=== PATIENT | male | born 1970 | race American Indian/Alaskan Native ===

== ENCOUNTER 2017-06-25 18:14 | Inpatient (IN) | payer SELFPAY ==
[2017-06-25 19:09] LABS: Basophils % (Auto) 2.9 % (0.0-1.8); Eosinophils % (Auto) 1.2 % (0.0-4.3); Hematocrit 49.4 % (35.5-45.6); Hemoglobin 15.9 gm/dl (11.8-15.2); Mean Corpuscular HGB Conc 32 % (32-34); Mean Corpuscular Hemoglobin 26 pg (28-32); Mean Corpuscular Volume 81 fl (84-94); Platelet Count 226 K/mm3 (140-440); Red Blood Count 6.11 M/mm3 (3.65-5.03); Red Cell Distribution Width 16.7 % (13.2-15.2); White Blood Count 7.3 K/mm3 (4.5-11.0)
[2017-06-25 19:20] LABS: Anion Gap 18 mmol/L; BUN/Creatinine Ratio 11.81; Blood Urea Nitrogen 13 mg/dL (9-20); Calcium 9.8 mg/dL (8.4-10.2); Carbon Dioxide 26 mmol/L (22-30); Chloride 99.5 mmol/L (98-107); Glucose 81 mg/dL (75-100); Potassium 5.1 mmol/L (3.6-5.0); Sodium 138 mmol/L (137-145)
--- NOTE | 2017-06-26 06:44 | Emergency Department Report ---
ED Chest Pain HPI - General Chief Complaint: Chest Pain Stated Complaint: CHEST PAIN LEFT SIDE Time Seen by Provider: 06/26/17 06:38 Source: patient Mode of arrival: Ambulatory Limitations: No Limitations - History of Present Illness Initial Comments: Patient complains of midsternal chest pain which is nonpleuritic and nonradiating intermittently since . It was not precipitated by a food bolus. However, the patient states he feels like something is stuck in his midsternal area. He has no difficulty in swallowing or odynophagia. Does not suffer from any chronic GI type symptoms. He states that his chest pain has not been associated with sweating coughing dizziness or nausea or vomiting. It is not exertional. He has never been to a physician for evaluation of chest pain. He does have risk factors for coronary artery disease. He states that he thinks his grandmother had congestive heart failure but is not referring coronary artery disease and a first-degree relative. MD Complaint: chest pain -: days(s) Onset: during rest Pain Location: substernal Pain Radiation: none Severity: moderate Severity scale (0 -10): 7 Quality: other ("like something stuck") Consistency: intermittent, now resolved Improves With: nothing Worsens With: nothing re: denies: nausea, vomting, diaphoresis, dyspnea, sense of impending doom Other Symptoms: denies: cough, fever, syncope Treatments Prior to Arrival: none Aspirin use within the Past 7 Days: (0) No - Related Data Home Medications Medication Instructions Recorded Confirmed Last Taken Atenolol [Tenormin] 50 mg PO DAILY 06/26/17 06/26/17 Unknown Lisinopril [Zestril TAB] 10 mg PO QDAY 06/26/17 06/26/17 Unknown amLODIPine [Norvasc] 10 mg PO DAILY 06/26/17 06/26/17 Unknown Allergies Allergy/AdvReac Type Severity Reaction Status Date / Time No Known Allergies Allergy Unverified 06/25/17 18:31 Heart Score - HEART Score History: Slightly suspicious EKG: Non-specific Age: 45-65 Risk factors: > 3 risk factors or hx of atherosclerotic disease Troponin: < normal limit HEART Score: 4 - Critical Actions Critical Actions: 0-3 pts:0.9-1.7%risk of adverse cardiac event.Candidate for discharge ED Review of Systems ROS: Stated complaint: CHEST PAIN LEFT SIDE Other details as noted in HPI Constitutional: denies: chills, fever Eyes: denies: eye pain, eye discharge, vision change ENT: denies: ear pain, throat pain Respiratory: denies: cough, shortness of breath, wheezing Cardiovascular: chest pain. denies: palpitations Endocrine: no symptoms reported Gastrointestinal: denies: abdominal pain, nausea, diarrhea Genitourinary: denies: urgency, dysuria Musculoskeletal: denies: back pain, joint swelling, arthralgia Skin: denies: rash, lesions Neurological: denies: headache, weakness, paresthesias Psychiatric: denies: anxiety, depression Hematological/Lymphatic: denies: easy bleeding, easy bruising ED Past Medical Hx - Past Medical History Hx Hypertension: Yes - Surgical History Past Surgical History?: Yes Additional Surgical History: Right arm - Social History Smoking Status: Current Every Day Smoker Substance Use Type: Alcohol - Medications Home Medications: Home Medications Medication Instructions Recorded Confirmed Last Taken Type Atenolol [Tenormin] 50 mg PO DAILY 06/26/17 06/26/17 Unknown History Lisinopril [Zestril TAB] 10 mg PO QDAY 06/26/17 06/26/17 Unknown History amLODIPine [Norvasc] 10 mg PO DAILY 06/26/17 06/26/17 Unknown History ED Physical Exam - General Limitations: No Limitations General appearance: alert, in no apparent distress, obese - Head Head exam: Present: atraumatic, normocephalic - Eye Eye exam: Present: normal appearance, PERRL, EOMI. Absent: scleral icterus - ENT ENT exam: Present: mucous membranes moist - Neck Neck exam: Present: normal inspection - Respiratory Respiratory exam: Present: normal lung sounds bilaterally. Absent: respiratory distress - Cardiovascular Cardiovascular Exam: Present: regular rate, normal rhythm. Absent: systolic murmur, diastolic murmur, rubs, gallop - GI/Abdominal GI/Abdominal exam: Present: soft, normal bowel sounds. Absent: distended, tenderness, guarding, rebound, rigid - Rectal Rectal exam: Present: deferred - Extremities Exam Extremities exam: Present: normal inspection - Back Exam Back exam: Present: normal inspection - Neurological Exam Neurological exam: Present: alert, oriented X3, CN II-XII intact. Absent: motor sensory deficit - Psychiatric Psychiatric exam: Present: normal affect, normal mood - Skin Skin exam: Present: warm, dry, intact, normal color. Absent: rash ED Course Vital Signs 06/25/17 06/26/17 06/26/17 18:27 02:30 03:45 Temperature 98.2 F Pulse Rate 90 75 70 Respiratory 20 16 14 Rate Blood Pressure 148/105 Blood Pressure 134/92 129/88 [Left] O2 Sat by Pulse 99 97 96 Oximetry 06/26/17 06/26/17 06/26/17 04:00 04:11 04:21 Temperature Pulse Rate 76 78 Respiratory 25 H 19 12 Rate Blood Pressure 125/94 125/94 119/88 Blood Pressure [Left] O2 Sat by Pulse 96 95 94 Oximetry 06/26/17 06/26/17 06/26/17 04:30 04:41 04:51 Temperature Pulse Rate 78 80 78 Respiratory 15 12 12 Rate Blood Pressure 128/86 128/86 124/85 Blood Pressure [Left] O2 Sat by Pulse 93 94 94 Oximetry 06/26/17 06/26/17 07:22 08:54 Temperature 98.2 F 98.2 F Pulse Rate 78 78 Respiratory 18 18 Rate Blood Pressure Blood Pressure 131/91 130/90 [Left] O2 Sat by Pulse 96 98 Oximetry - Reevaluation(s) Reevaluation #1: Patient is admitted by Dr. Deshpande to the hospital service for further care and evaluation. 06/26/17 13:59 PARTH score - Parth Score Age > 65: (0) No Aspirin use within the Past 7 Days: (0) No 3 or more CAD Risk Factors: (1) Yes 2 or more Angina events in past 24 hrs: (0) No Known CAD with more than 50% Stenosis: (0) No Elevated Cardiac Markers: (0) No ST Deviation Greater than 0.5mm: (0) No PARTH Score: 1 ED Medical Decision Making - Lab Data Result diagrams: 06/26/17 09:36 06/26/17 09:36 Laboratory Results - last 24 hr 06/25/17 06/25/17 06/25/17 18:49 18:49 21:15 WBC 7.3 RBC 6.11 H Hgb 15.9 H Hct 49.4 H MCV 81 L MCH 26 L MCHC 32 RDW 16.7 H Plt Count 226 Lymph % (Auto) 42.2 H [place] % (Auto) 8.4 H Eos % (Auto) 1.2 Baso % (Auto) 2.9 H Lymph # 3.1 [place] # 0.6 Eos # 0.1 Baso # 0.2 H Seg Neutrophils % 45.3 Seg Neutrophils # 3.3 Sodium 138 Potassium 5.1 H Chloride 99.5 Carbon Dioxide 26 Anion Gap 18 BUN 13 Creatinine 1.1 Estimated GFR > 60 BUN/Creatinine Ratio 11.81 Glucose 81 Calcium 9.8 Troponin T < 0.010 < 0.010 06/26/17 00:40 WBC RBC Hgb Hct MCV MCH MCHC RDW Plt Count Lymph % (Auto) [place] % (Auto) Eos % (Auto) Baso % (Auto) Lymph # [place] # Eos # Baso # Seg Neutrophils % Seg Neutrophils # Sodium Potassium Chloride Carbon Dioxide Anion Gap BUN Creatinine Estimated GFR BUN/Creatinine Ratio Glucose Calcium Troponin T < 0.010 - EKG Data -: EKG Interpreted by Me Rate: normal - EKG Data Interpretation: no acute changes, other (EKG shows first-degree A-V block with a very significant SD interval of 352 on repeat EKG, prior EKG had a SD interval of 216 possibly with occasional periods of Wenkebach) - Radiology Data Radiology results: report reviewed interpreted by me: Chest x-ray no acute process Critical care attestation.: If time is entered above; I have spent that time in minutes in the direct care of this critically ill patient, excluding procedure time. ED Disposition Clinical Impression: First degree AV block Chest pain Qualifiers: Chest pain type: unspecified Qualified Code(s): R07.9 - Chest pain, unspecified Disposition: OP ADMIT IP TO THIS HOSP Is pt being admited?: Yes Does the pt Need Aspirin: Yes Condition: Stable Time of Disposition: 14:03
[2017-06-26 08:09] LABS: INR 1.02 (0.87-1.13)
[2017-06-26 08:10] LABS: Partial Thromboplastin Time 31.5 Sec. (24.2-36.6)
[2017-06-26 08:12] LABS: Alanine Aminotransferase 19 units/L (7-56); Albumin 4.2 g/dL (3.9-5); Albumin/Globulin Ratio 1.3 %; Alkaline Phosphatase 59 units/L (35-129); Total Protein 7.5 g/dL (6.3-8.2)
[2017-06-26 08:16] LABS: Bilirubin,Direct < 0.2 mg/dL (0-0.2)
--- NOTE | 2017-06-26 09:18 | History and Physical Report ---
History of Present Illness Date of examination: 06/26/17 Date of admission: 06/26/17 07:57 Chief complaint: cp History of present illness: This is a 46-year-old male presents to the emergency department with significant past medical history of hypertension complaining of midsternal nonradiating chest pain that began on . Patient reports that the pain has been constant since day and progressively worsened on Tuesday afternoon which prompted his visit to the emergency room. Denies any shortness of breath. No PND or orthopnea. No cough or cold-like symptoms. No fever chills. No diaphoresis. No nausea or vomiting. However, patient does report that the pain feels like gas that is trapped or indigestion. Patient denies any headache or visual disturbances. Past History Past Medical History: hypertension Past Surgical History: Other (right arm surgery) Social history: no significant social history, smoking, other (3 beers per day) Family history: no significant family history Medications and Allergies Allergies Allergy/AdvReac Type Severity Reaction Status Date / Time No Known Allergies Allergy Unverified 06/25/17 18:31 Review of Systems All systems: negative Exam - Constitutional Vitals: Temp Pulse Resp BP Pulse Ox 98.2 F 78 18 130/90 98 06/26/17 08:54 06/26/17 08:54 06/26/17 08:54 06/26/17 08:54 06/26/17 08:54 General appearance: Present: no acute distress, well-nourished - EENT Eyes: Present: PERRL ENT: hearing intact, clear oral mucosa - Neck Neck: Present: supple, normal ROM - Respiratory Respiratory effort: normal Respiratory: bilateral: CTA - Cardiovascular Heart Sounds: Present: S1 & S2. Absent: rub, click - Extremities Extremities: pulses symmetrical, No edema Peripheral Pulses: within normal limits - Abdominal General gastrointestinal: Present: soft, non-tender, non-distended, normal bowel sounds Male genitourinary: Present: normal - Integumentary Integumentary: Present: clear, warm, dry - Musculoskeletal Musculoskeletal: gait normal, strength equal bilaterally - Psychiatric Psychiatric: appropriate mood/affect, intact judgment & insight - Neurologic Neurologic: CNII-XII intact, moves all extremities Results - Labs CBC & Chem 7: 06/25/17 18:49 06/25/17 18:49 Labs: Laboratory Last Values WBC 7.3 K/mm3 (4.5-11.0) 06/25/17 18:49 RBC 6.11 M/mm3 (3.65-5.03) H 06/25/17 18:49 Hgb 15.9 gm/dl (11.8-15.2) H 06/25/17 18:49 Hct 49.4 % (35.5-45.6) H 06/25/17 18:49 MCV 81 fl (84-94) L 06/25/17 18:49 MCH 26 pg (28-32) L 06/25/17 18:49 MCHC 32 % (32-34) 06/25/17 18:49 RDW 16.7 % (13.2-15.2) H 06/25/17 18:49 Plt Count 226 K/mm3 (140-440) 06/25/17 18:49 Lymph % (Auto) 42.2 % (13.4-35.0) H 06/25/17 18:49 [place] % (Auto) 8.4 % (0.0-7.3) H 06/25/17 18:49 Eos % (Auto) 1.2 % (0.0-4.3) 06/25/17 18:49 Baso % (Auto) 2.9 % (0.0-1.8) H 06/25/17 18:49 Lymph # 3.1 K/mm3 (1.2-5.4) 06/25/17 18:49 [place] # 0.6 K/mm3 (0.0-0.8) 06/25/17 18:49 Eos # 0.1 K/mm3 (0.0-0.4) 06/25/17 18:49 Baso # 0.2 K/mm3 (0.0-0.1) H 06/25/17 18:49 Seg Neutrophils % 45.3 % (40.0-70.0) 06/25/17 18:49 Seg Neutrophils # 3.3 K/mm3 (1.8-7.7) 06/25/17 18:49 PT 13.3 Sec. (12.2-14.9) 06/26/17 07:38 INR 1.02 (0.87-1.13) 06/26/17 07:38 APTT 31.5 Sec. (24.2-36.6) 06/26/17 07:38 D-Dimer 1060.22 ng/mlDDU (0-234) H 06/26/17 07:38 Sodium 138 mmol/L (137-145) 06/25/17 18:49 Potassium 5.1 mmol/L (3.6-5.0) H 06/25/17 18:49 Chloride 99.5 mmol/L (98-107) 06/25/17 18:49 Carbon Dioxide 26 mmol/L (22-30) 06/25/17 18:49 Anion Gap 18 mmol/L 06/25/17 18:49 BUN 13 mg/dL (9-20) 06/25/17 18:49 Creatinine 1.1 mg/dL (0.8-1.5) 06/25/17 18:49 Estimated GFR > 60 ml/min 06/25/17 18:49 BUN/Creatinine Ratio 11.81 % 06/25/17 18:49 Glucose 81 mg/dL (75-100) 06/25/17 18:49 Calcium 9.8 mg/dL (8.4-10.2) 06/25/17 18:49 Total Bilirubin 0.30 mg/dL (0.1-1.2) 06/26/17 07:38 Direct Bilirubin < 0.2 mg/dL (0-0.2) 06/26/17 07:38 AST 21 units/L (5-40) 06/26/17 07:38 ALT 19 units/L (7-56) 06/26/17 07:38 Alkaline Phosphatase 59 units/L (35-129) 06/26/17 07:38 Troponin T < 0.010 ng/mL (0.00-0.029) 06/26/17 00:40 NT-Pro-B Natriuret Pep 8.41 pg/mL (0-450) 06/26/17 07:38 Total Protein 7.5 g/dL (6.3-8.2) 06/26/17 07:38 Albumin 4.2 g/dL (3.9-5) 06/26/17 07:38 Albumin/Globulin Ratio 1.3 % 06/26/17 07:38 Assessment and Plan Assessment and plan: Chest pain. Patient will be placed on a chest pain protocol. Follow-up EKG and cardiac isoenzymes. Patient will be scheduled for Lexiscan in the morning. Hypertension. Resume antihypertensive medications of lisinopril, Norvasc and atenolol.
[2017-06-26] MEDS ORDERED: MILK OF MAGNESIA PO PRN (09:21)
[2017-06-26] MEDS ORDERED: TYLENOL PO PRN (09:21)
[2017-06-26] MEDS ORDERED: DULCOLAX PR PRN (09:21)
[2017-06-26 09:46] LABS: Basophils % (Auto) 0.7 % (0.0-1.8); Hematocrit 47.8 % (35.5-45.6); Hemoglobin 15.5 gm/dl (11.8-15.2); Mean Corpuscular HGB Conc 32 % (32-34); Mean Corpuscular Hemoglobin 26 pg (28-32); Mean Corpuscular Volume 82 fl (84-94); Platelet Count 219 K/mm3 (140-440); Red Blood Count 5.86 M/mm3 (3.65-5.03); Red Cell Distribution Width 16.5 % (13.2-15.2); White Blood Count 5.9 K/mm3 (4.5-11.0)
--- NOTE | 2017-06-26 09:54 | XRay Report ---
AP CHEST: HISTORY: chest pain AP view of the chest demonstrates a normal mediastinal and cardiac contour with clear lungs and normal bony and soft tissue structures. IMPRESSION: Unremarkable AP chest.
[2017-06-26] MEDS ORDERED: NACL 0.9% 1000 ML 1,000 ML IV SCH (10:00)
[2017-06-26] MEDS ORDERED: SODIUM CHLORIDE FLUSH SYRINGE 10 ML IV PRN (10:00)
[2017-06-26] MEDS ORDERED: ZOFRAN IV PRN (10:00)
[2017-06-26 10:02] LABS: Anion Gap 19 mmol/L; BUN/Creatinine Ratio 11.66; Blood Urea Nitrogen 14 mg/dL (9-20); Calcium 9.2 mg/dL (8.4-10.2); Carbon Dioxide 23 mmol/L (22-30); Chloride 98.3 mmol/L (98-107); Glucose 152 mg/dL (75-100); Sodium 136 mmol/L (137-145)
[2017-06-26] MEDS: MORPHINE IV PRN (13:52)
[2017-06-26] MEDS: LOVENOX SUB-Q SCH (13:52)
[2017-06-26] MEDS: PROTONIX PO SCH (13:52)
[2017-06-27 05:52] LABS: Basophils % (Auto) 0.8 % (0.0-1.8); Eosinophils % (Auto) 2.3 % (0.0-4.3); Hematocrit 45.6 % (35.5-45.6); Hemoglobin 14.7 gm/dl (11.8-15.2); Mean Corpuscular HGB Conc 32 % (32-34); Mean Corpuscular Hemoglobin 26 pg (28-32); Mean Corpuscular Volume 81 fl (84-94); Platelet Count 172 K/mm3 (140-440); Red Cell Distribution Width 16.6 % (13.2-15.2); White Blood Count 5.1 K/mm3 (4.5-11.0)
[2017-06-27 06:12] LABS: Anion Gap 18 mmol/L; Blood Urea Nitrogen 18 mg/dL (9-20); Calcium 8.9 mg/dL (8.4-10.2); Carbon Dioxide 24 mmol/L (22-30); Glucose 116 mg/dL (75-100); Potassium 4.6 mmol/L (3.6-5.0); Sodium 141 mmol/L (137-145)
--- NOTE | 2017-06-27 08:27 | Progress Note ---
Addendum entered and electronically signed by NAHOMY BUENROSTRO MD 06/27/17 14:25: I saw and evaluated the patient. I agree with the findings and the plan of care as documented in the Nurse Practitioner's~note, with the following corrections and additions. Original Note: <OMAR GOSS - Last Filed: 06/27/17 10:18> Assessment and Plan Assessment and plan: Chest pain No multiple to lead EKG, we will also get an EKG for any changes that have taken since the first obtained. Started on aspirin Cardiac enzymes troponin negative 3 Stress test Pending Elevate D-dimer We will get CTA to rule out pulmonary embolism we will get Bilateral VL venous doppler to rule out DVT of the lower extremity. Hypertension We will resume home antihypertensive medicine IV hydralazine for SBP >160 DVT prophylaxis Lovenox History Interval history: Patient complaining midsternal chest pain, but he denies associated symptoms nausea, vomiting or sweating. Hospitalist Physical - Constitutional Vitals: Temp Pulse Resp BP Pulse Ox 97.7 F 96 H 20 139/82 98 06/27/17 06:29 06/27/17 06:29 06/27/17 06:29 06/27/17 06:29 06/27/17 06:29 General appearance: Present: no acute distress, well-nourished - EENT Eyes: Present: PERRL ENT: hearing intact - Neck Neck: Present: supple - Respiratory Respiratory effort: normal Respiratory: bilateral: CTA - Cardiovascular Rhythm: regular Heart Sounds: Present: S1 & S2 - Extremities Extremities: no ischemia Peripheral Pulses: within normal limits - Abdominal General gastrointestinal: soft, non-tender - Integumentary Integumentary: Present: clear, warm, dry - Psychiatric Psychiatric: appropriate mood/affect - Neurologic Neurologic: CNII-XII intact - Allied Health Allied health notes reviewed: nursing Results - Labs CBC & Chem 7: 06/27/17 05:29 06/27/17 05:29 Labs: Laboratory Last Values WBC 5.1 K/mm3 (4.5-11.0) 06/27/17 05:29 RBC 5.60 M/mm3 (3.65-5.03) H 06/27/17 05:29 Hgb 14.7 gm/dl (11.8-15.2) 06/27/17 05:29 Hct 45.6 % (35.5-45.6) 06/27/17 05:29 MCV 81 fl (84-94) L 06/27/17 05:29 MCH 26 pg (28-32) L 06/27/17 05:29 MCHC 32 % (32-34) 06/27/17 05:29 RDW 16.6 % (13.2-15.2) H 06/27/17 05:29 Plt Count 172 K/mm3 (140-440) 06/27/17 05:29 Lymph % (Auto) 51.3 % (13.4-35.0) H 06/27/17 05:29 [place] % (Auto) 9.7 % (0.0-7.3) H 06/27/17 05:29 Eos % (Auto) 2.3 % (0.0-4.3) 06/27/17 05:29 Baso % (Auto) 0.8 % (0.0-1.8) 06/27/17 05:29 Lymph # 2.6 K/mm3 (1.2-5.4) 06/27/17 05:29 [place] # 0.5 K/mm3 (0.0-0.8) 06/27/17 05:29 Eos # 0.1 K/mm3 (0.0-0.4) 06/27/17 05:29 Baso # 0.0 K/mm3 (0.0-0.1) 06/27/17 05:29 Seg Neutrophils % 35.9 % (40.0-70.0) L 06/27/17 05:29 Seg Neutrophils # 1.8 K/mm3 (1.8-7.7) 06/27/17 05:29 PT 13.3 Sec. (12.2-14.9) 06/26/17 07:38 INR 1.02 (0.87-1.13) 06/26/17 07:38 APTT 31.5 Sec. (24.2-36.6) 06/26/17 07:38 D-Dimer 1060.22 ng/mlDDU (0-234) H 06/26/17 07:38 Sodium 136 mmol/L (137-145) L 06/26/17 09:36 Potassium 4.6 mmol/L (3.6-5.0) 06/27/17 05:29 Chloride 104.0 mmol/L (98-107) 06/27/17 05:29 Carbon Dioxide 24 mmol/L (22-30) 06/27/17 05:29 Anion Gap 18 mmol/L 06/27/17 05:29 BUN 18 mg/dL (9-20) 06/27/17 05:29 Creatinine 1.0 mg/dL (0.8-1.5) 06/27/17 05:29 Estimated GFR > 60 ml/min 06/27/17 05:29 BUN/Creatinine Ratio 18.00 % 06/27/17 05:29 Glucose 116 mg/dL (75-100) H 06/27/17 05:29 Calcium 8.9 mg/dL (8.4-10.2) 06/27/17 05:29 Total Bilirubin 0.30 mg/dL (0.1-1.2) 06/26/17 07:38 Direct Bilirubin < 0.2 mg/dL (0-0.2) 06/26/17 07:38 AST 21 units/L (5-40) 06/26/17 07:38 ALT 19 units/L (7-56) 06/26/17 07:38 Alkaline Phosphatase 59 units/L (35-129) 06/26/17 07:38 Troponin T < 0.010 ng/mL (0.00-0.029) 06/26/17 15:50 NT-Pro-B Natriuret Pep 8.41 pg/mL (0-450) 06/26/17 07:38 Total Protein 7.5 g/dL (6.3-8.2) 06/26/17 07:38 Albumin 4.2 g/dL (3.9-5) 06/26/17 07:38 Albumin/Globulin Ratio 1.3 % 06/26/17 07:38 - Imaging and Cardiology Chest x-ray: image reviewed <NAHOMY BUENROSTRO R - Last Filed: 06/27/17 14:24> Assessment and Plan Assessment and plan: I saw and evaluated the patient. I agree with the findings and the plan of care as documented in the Nurse Practitioner's~note, with the following corrections and additions. Hospitalist Physical - Constitutional Vitals: Temp Pulse Resp BP Pulse Ox 97.5 F L 71 18 149/96 98 06/27/17 08:00 06/27/17 08:00 06/27/17 08:00 06/27/17 08:00 06/27/17 08:00 Results - Labs CBC & Chem 7: 06/27/17 05:29 06/27/17 05:29 Labs: Laboratory Last Values WBC 5.1 K/mm3 (4.5-11.0) 06/27/17 05:29 RBC 5.60 M/mm3 (3.65-5.03) H 06/27/17 05:29 Hgb 14.7 gm/dl (11.8-15.2) 06/27/17 05:29 Hct 45.6 % (35.5-45.6) 06/27/17 05:29 MCV 81 fl (84-94) L 06/27/17 05:29 MCH 26 pg (28-32) L 06/27/17 05:29 MCHC 32 % (32-34) 06/27/17 05:29 RDW 16.6 % (13.2-15.2) H 06/27/17 05:29 Plt Count 172 K/mm3 (140-440) 06/27/17 05:29 Lymph % (Auto) 51.3 % (13.4-35.0) H 06/27/17 05:29 [place] % (Auto) 9.7 % (0.0-7.3) H 06/27/17 05:29 Eos % (Auto) 2.3 % (0.0-4.3) 06/27/17 05:29 Baso % (Auto) 0.8 % (0.0-1.8) 06/27/17 05:29 Lymph # 2.6 K/mm3 (1.2-5.4) 06/27/17 05:29 [place] # 0.5 K/mm3 (0.0-0.8) 06/27/17 05:29 Eos # 0.1 K/mm3 (0.0-0.4) 06/27/17 05:29 Baso # 0.0 K/mm3 (0.0-0.1) 06/27/17 05:29 Seg Neutrophils % 35.9 % (40.0-70.0) L 06/27/17 05:29 Seg Neutrophils # 1.8 K/mm3 (1.8-7.7) 06/27/17 05:29 PT 13.3 Sec. (12.2-14.9) 06/26/17 07:38 INR 1.02 (0.87-1.13) 06/26/17 07:38 APTT 31.5 Sec. (24.2-36.6) 06/26/17 07:38 D-Dimer 1060.22 ng/mlDDU (0-234) H 06/26/17 07:38 Sodium 136 mmol/L (137-145) L 06/26/17 09:36 Potassium 4.6 mmol/L (3.6-5.0) 06/27/17 05:29 Chloride 104.0 mmol/L (98-107) 06/27/17 05:29 Carbon Dioxide 24 mmol/L (22-30) 06/27/17 05:29 Anion Gap 18 mmol/L 06/27/17 05:29 BUN 18 mg/dL (9-20) 06/27/17 05:29 Creatinine 1.0 mg/dL (0.8-1.5) 06/27/17 05:29 Estimated GFR > 60 ml/min 06/27/17 05:29 BUN/Creatinine Ratio 18.00 % 06/27/17 05:29 Glucose 116 mg/dL (75-100) H 06/27/17 05:29 Calcium 8.9 mg/dL (8.4-10.2) 06/27/17 05:29 Total Bilirubin 0.30 mg/dL (0.1-1.2) 06/26/17 07:38 Direct Bilirubin < 0.2 mg/dL (0-0.2) 06/26/17 07:38 AST 21 units/L (5-40) 06/26/17 07:38 ALT 19 units/L (7-56) 06/26/17 07:38 Alkaline Phosphatase 59 units/L (35-129) 06/26/17 07:38 Troponin T < 0.010 ng/mL (0.00-0.029) 06/26/17 15:50 NT-Pro-B Natriuret Pep 8.41 pg/mL (0-450) 06/26/17 07:38 Total Protein 7.5 g/dL (6.3-8.2) 06/26/17 07:38 Albumin 4.2 g/dL (3.9-5) 06/26/17 07:38 Albumin/Globulin Ratio 1.3 % 06/26/17 07:38
[2017-06-27] MEDS ORDERED: NACL ONE (09:55)
--- NOTE | 2017-06-27 10:43 | Cat Scan Report ---
CTA CHEST INDICATION: Elevated d-dimer. COMPARISON: None similar. FINDINGS: Chest CTA performed following intravenous administration of 100 cc of Omnipaque 350. Rotational MIP's also obtained. Normal heart size. No effusions. No aortic aneurysm, dissection or suspicious pulmonary arterial filling defects. A subcarinal lymph node approximately 2.6 x 1.5 cm, axial image 111, series 2. No other definite significant adenopathy. Normal airway. Unremarkable thyroid. Well-expanded lungs with 3 small nonspecific peripheral right upper lobe opacities anteriorly, axial images 59-79, series 2 measuring up to approximately 1.2 cm, presumed atelectatic. At least one similar appearance in the left upper lobe anteriorly also seen, axial image 66. Images through included upper abdomen reveal no significant abnormality. Mild spinal degenerative spurring. CONCLUSION: No CT evidence of pulmonary embolism with few other incidental findings, as above. Thank you for the opportunity to participate in this patient's care.
--- NOTE | 2017-06-27 10:54 | Admit Criteria Form ---
Admission Criteria Documentation: CARDIOLOGY GRG Clinical Indications for Admission to Inpatient Care ( Place 'X' for any and all applicable criteria): Hospital admission is needed for appropriate care of the patient because of ANY ONE of the following (1): [ ] I. Hemodynamic instability as indicated by ALL of the following (1)(2)(3) (4)(5) [ ]a) Vital signs or other findings not as expected for chronic patient condition or baseline [ ]b) Instability indicated by ANY ONE of the following: [ ]i) Hypotension [ ]ii) Symptomatic Tachycardia unresponsive to treatment ( e.g., analgesia, fluids, sedation as indicated) [ ]iii) Inadequate perfusion indicated by ANY ONE of the following: [ ] 1) Lactic acidosis (> 2 mmol/L) [ ] 2) New abnormal capillary refill (> 3 seconds) [ ] 3) Reduced urine output [ ] 4) New altered mental status [ ]iv) Orthostatic vital sign changes unresponsive to treatment (e.g., fluids) [ ]v) IV inotropic or vasopressor medication required to maintain adequate blood pressure or perfusion [ ] II. Severe heart failure as indicated by ANY ONE of the following(17)(18) [ ]a) Respiratory distress [ ]b) Hypotension [ ]c) Anasarca (refractory to outpatient therapy) [ ]d) Cardiac arrhythmias of immediate concern [ ]e) Myocardial ischemia [ ] III. Cardiac arrhythmias or findings of immediate concern indicated by ANY ONE of the following (19)(20): [ ] a) Heart rhythms that are inherently dangerous or unstable indicated by ANY ONE of the following (21)(22)(23): [ ] i) Resuscitated ventricular fibrillation or cardiac arrest [ ] ii) Ventricular escape rhythm [ ] iii) Sustained ventricular tachycardia (30 seconds or more of ventricular rhythm at greater than 100 beats per minute) [ ] iv) Nonsustained ventricular tachycardia and ANY ONE of the following: [ ] 1) Suspected cardiac ischemia as cause or consequence of ventricular tachycardia [ ] 2) In setting of acute myocarditis [ ] b) Unstable cardiac conduction defects indicated by ANY ONE of the following(23)(24)(25) [ ] i) Type II second-degree atrioventricular block [ ]ii) Third-degree atrioventricular block [ ]iii) New-onset left bundle branch block with suspected myocardial ischemia [ ]c) Any heart rhythm and ANY ONE of the following (21)(22)(26)(27) (28) [ ] i) Continuous long-term ECG monitoring needed (e.g., initiation of drug requiring monitoring for more than 24 hours) [ ] ii) Patient has automatic implanted cardioverter defibrillator that is repeatedly firing, malfunctioning, or in need of immediate adjustment of settings beyond the scope of ambulatory or observation care [ ]d) Heart rhythms of concern due to ANY ONE of the following: [ ] i) Hypotension [ ] ii) Respiratory distress [ ] iii) Association with other significant symptoms (e.g., bradycardia with syncope or ongoing dizziness, supraventricular tachycardia with chest pain (14)(15)(17) [ ] IV. Monitoring for cardiac contusion beyond the scope of observation care needed [A](30)(31)(32) [ ] V. Surgical or device complication (e.g., valve replacement complication , pacemaker dysfunction) (35)(41)(44)(45)(46) [ ] . Inpatient palliative care needed. [B](49) Also use Inpatient Palliative Care Criteria [ ] VII. Nonbacterial thrombotic (marantic) endocarditis (36)(43)(47)(48) [X] VIII. Cardiology condition, symptom, or finding for which emergency and observation care has failed or are not considered appropriate. [ ] IX. Acute valvular disease requiring inpatient as indicated by ANY ONE of the following (41) [ ]a) Acute valvular regurgitation (42) [ ]b) Noninfectious valvulitis (43) [ ]c) Obstructive valve thrombosis [ ]d) Paravalvular leak [ ]e) Other significant valvular disorder remaining after emergency or observation level of care (as appropriate) [ ]X. Pericardial disease requiring inpatient treatment as indicated by ANY ONE of the following (33)(34)(35)(36)(37) [ ]a) Suspected tamponade (38)(39)(40) [ ]b) Hemopericardium [ ]c) Other significant pericardial disorder remaining after emergency or observation level of care (as appropriate) [ ] XI. Cardiac ischemia beyond scope of emergency and observation care. [ ] XII. Hypertension requiring inpatient treatment as indicated by ANY ONE of the following (6)(7)(8) [ ]a) SBP greater than 220 mm Hg or DBP greater than 120 mmHg despite treatment [ ]b) SBP greater than 140 mm Hg or DBP greater than 100 mm Hg with evidence of acute end organ damage as indicated by ANY ONE of the following [ ] i) Altered mental status [ ] ii) Acute renal failure as indicated by new onset of ANY ONE of the following (9)(10)(11)(12)(13) [ ]1) 3-fold rise in serum creatinine from baseline [ ]2) Serum creatinine greater than 4 mg/dL ( 354 micromoles/L) with acute rise greater than 0.5 mg/dL (44.2 micromoles/L) [ ]3) Reduction of more than 75% in estimated glomerular filtration rate from baseline [ ]4) Estimated glomerular filtration rate less than 35 mL/min/1.73m2 (0.59 mL/sec/1.73m2) in child up to 18 years of age [ ]5) Cessation of urine output indicated by ALL of the following [ ]A. Adequate volume status [ ]B. Inadequate urine output as indicated by ANY ONE of the following [ ]a. Urine output less than 0.3 mL/kg/hr for 24 hours [ ]b. Anuria (urine output less than 0.1 mL/kg/hr) for 12 hours [ ] iii) Aortic dissection [ ] iv) Myocardial Ischemia [ ] v) Left ventricular heart failure [ ]vi) Retinal Hemorrhage [ ]vii) Other significant finding [ ]c) Hypertension in child requiring inpatient treatment as indicated by ALL of the following(14)(15)(16) [ ] i) Outpatient treatment not effective, not available, or not appropriate [ ]ii) SBP or DBP greater than 95th percentile for age [ ]iii) Evidence of acute end organ damage as indicated by ANY ONE of the following [ ]1) Altered mental status [ ]2) Acute renal failure as indicated by new onset of ANY ONE of the following(9)(10)(11)(12)(13) [ ]A. 3-fold rise in serum creatinine from baseline [ ]B. Serum creatinine greater than 4 mg/dL (354 micromoles/L) with acute rise greater than 0.5 mg/dL (44.2 micromoles/L) [ ]C. Reduction of more than 75% in estimated glomerular filtration rate from baseline [ ]D. Estimated glomerular filtration rate less than 35 mL/min/1.73m2 (0.59 mL/sec/1.73m2) in child up to 18 years of age [ ]E. Cessation of urine output indicated by ALL of the following [ ]a. Adequate volume status [ ]b. Inadequate urine output as indicated by ANY ONE of the following [ ]i) Urine output less than 0.3 mL/kg/hr for 24 hours [ ]ii) Anuria ( urine output less than 0.1 mL/kg/hr) for 12 hours [ ]3) Severe headache [ ]4) Visual disturbance [ ]5) Retinal hemorrhage [ ]6) Other significant finding [ ]XIII. Complications of transplanted heart indicated by ANY ONE of the following(61): [ ]a) Acute graft rejection requiring inpatient management (eg, intravenous immunosuppression)(62)(63) [ ]b) Acute graft heart failure indicated by ANY ONE of the following(64): [ ]i) Hemodynamic instability [ ]ii) Cardiac arrhythmias of immediate concern [ ]iii) Pulmonary edema that is very severe (eg, mechanical ventilation needed, imminent or likely, need for 100% oxygen to keep oxygen saturation above 90%) [ ]iv) Pulmonary edema that is persistent as indicated by ALL of the following: [ ]1) New need for oxygen therapy to keep oxygen saturation above 90% (or increased FiO2 need from baseline) [ ]2) Has not improved sufficiently with emergency department or observation care IV diuretics or other heart failure treatments[E] [ ]v) Altered mental status that is severe or persistent [ ]vi) Increased creatinine (new on laboratory test) with reduction of more than 50% in estimated glomerular filtration rate from baseline [ ]vii) Progressively (ongoing) rising creatinine (known from past laboratory test) with reduction of more than 25% in estimated glomerular filtration rate from baseline [ ]viii) Acute renal failure [ ]ix) Acute peripheral ischemia (eg, examination shows pulseless, cool, mottled, or cyanotic extremity) [ ]x) Pulmonary artery catheter monitoring needed [ ]xi) Other sign or symptom of heart failure requiring inpatient treatment (ie, too severe or not responsive to outpatient and observation care treatment) [ ]c) Infection requiring inpatient management (eg, Hemodynamic instability, need for intravenous antimicrobial treatment)(66)(67)(68)(69)(70) [ ]d) Cardiac allograft vasculopathy requiring inpatient management ( eg evidence of cardiac ischemia)(71) [ ]e) Other complication of transplanted heart (eg, stroke, severe pulmonary hypertension, severe valvular dysfunction) requiring inpatient management(72) The original [facility] [employer] content created by [facility] has been revised. The portions of the content which have been revised are identified through the use of italic text or in bold, and [facility] has neither reviewed nor approved the modified material. All other unmodified content is copyright [facility] [employer]. Please see references footnoted in the original [facility] [employer] edition 2016 Admission Criteria Met: Yes
[2017-06-27] MEDS ORDERED: LEXISCAN IV ONE (11:23)
[2017-06-27] MEDS: LOVENOX SUB-Q SCH (13:57)
[2017-06-27] MEDS: NORVASC PO SCH (13:58)
[2017-06-27] MEDS: PROTONIX PO SCH (13:58)
[2017-06-27] MEDS: ZESTRIL PO SCH (13:58)
[2017-06-27] MEDS: TENORMIN PO SCH (13:58)
[2017-06-27] MEDS: BABY ASPIRIN PO SCH (13:59)
[2017-06-27] MEDS: MORPHINE IV PRN (16:06)
[2017-06-28] MEDS: MORPHINE IV PRN (03:51)
--- NOTE | 2017-06-28 07:23 | Treadmill Report ---
Nuclear study done on 06/27/2017 for chest pain READING PHYSICIAN: Dr. Gianni Simon The patient is seen in office. IMAGING PROTOCOL: The patient received 10 mCi of Technetium 99m Tetrofosmin for resting image and 28 mCi of Technetium 99m Tetrofosmin for stress imaging. The imaging for the whole procedure was completed 30-90 minutes following the initial injection of Technetium 99m tetrofosmin. The SPECT imaging in the 180 degree arc was performed in the right anterior oblique projection. Computerized reconstruction of the images was performed for analysis. IMAGING RESULTS: Normal cavity size from stress to rest. Normal distribution of radionuclide in the anterior, inferior, septal and apical regions. Gated SPECT, EF greater than 59% with motion abnormalities. The patient infused Lexiscan after some intermediate Wenckebach, but no EKG changes suggestive of ischemia. SUMMARY: 1. Negative Lexiscan EKG. 2. Normal rest and stress myocardial perfusion scan. No significant stress ischemia. No wall motion abnormality. Gated SPECT 59%. JOB# [id number] MARIA FERNANDA/CARIDAD
--- NOTE | 2017-06-28 08:16 | Progress Note ---
Hospitalist Physical - Constitutional Vitals: Temp Pulse Resp BP Pulse Ox 97.3 F L 62 20 114/71 94 06/28/17 05:43 06/28/17 05:43 06/28/17 05:43 06/28/17 05:43 06/28/17 05:43 General appearance: Present: no acute distress, well-nourished Results - Labs CBC & Chem 7: 06/27/17 05:29 06/27/17 05:29 Labs: Laboratory Last Values WBC 5.1 K/mm3 (4.5-11.0) 06/27/17 05:29 RBC 5.60 M/mm3 (3.65-5.03) H 06/27/17 05:29 Hgb 14.7 gm/dl (11.8-15.2) 06/27/17 05:29 Hct 45.6 % (35.5-45.6) 06/27/17 05:29 MCV 81 fl (84-94) L 06/27/17 05:29 MCH 26 pg (28-32) L 06/27/17 05:29 MCHC 32 % (32-34) 06/27/17 05:29 RDW 16.6 % (13.2-15.2) H 06/27/17 05:29 Plt Count 172 K/mm3 (140-440) 06/27/17 05:29 Lymph % (Auto) 51.3 % (13.4-35.0) H 06/27/17 05:29 Bosque % (Auto) 9.7 % (0.0-7.3) H 06/27/17 05:29 Eos % (Auto) 2.3 % (0.0-4.3) 06/27/17 05:29 Baso % (Auto) 0.8 % (0.0-1.8) 06/27/17 05:29 Lymph # 2.6 K/mm3 (1.2-5.4) 06/27/17 05:29 Bosque # 0.5 K/mm3 (0.0-0.8) 06/27/17 05:29 Eos # 0.1 K/mm3 (0.0-0.4) 06/27/17 05:29 Baso # 0.0 K/mm3 (0.0-0.1) 06/27/17 05:29 Seg Neutrophils % 35.9 % (40.0-70.0) L 06/27/17 05:29 Seg Neutrophils # 1.8 K/mm3 (1.8-7.7) 06/27/17 05:29 PT 13.3 Sec. (12.2-14.9) 06/26/17 07:38 INR 1.02 (0.87-1.13) 06/26/17 07:38 APTT 31.5 Sec. (24.2-36.6) 06/26/17 07:38 D-Dimer 1060.22 ng/mlDDU (0-234) H 06/26/17 07:38 Sodium 136 mmol/L (137-145) L 06/26/17 09:36 Potassium 4.6 mmol/L (3.6-5.0) 06/27/17 05:29 Chloride 104.0 mmol/L (98-107) 06/27/17 05:29 Carbon Dioxide 24 mmol/L (22-30) 06/27/17 05:29 Anion Gap 18 mmol/L 06/27/17 05:29 BUN 18 mg/dL (9-20) 06/27/17 05:29 Creatinine 1.0 mg/dL (0.8-1.5) 06/27/17 05:29 Estimated GFR > 60 ml/min 06/27/17 05:29 BUN/Creatinine Ratio 18.00 % 06/27/17 05:29 Glucose 116 mg/dL (75-100) H 06/27/17 05:29 Calcium 8.9 mg/dL (8.4-10.2) 06/27/17 05:29 Total Bilirubin 0.30 mg/dL (0.1-1.2) 06/26/17 07:38 Direct Bilirubin < 0.2 mg/dL (0-0.2) 06/26/17 07:38 AST 21 units/L (5-40) 06/26/17 07:38 ALT 19 units/L (7-56) 06/26/17 07:38 Alkaline Phosphatase 59 units/L (35-129) 06/26/17 07:38 Troponin T < 0.010 ng/mL (0.00-0.029) 06/26/17 15:50 NT-Pro-B Natriuret Pep 8.41 pg/mL (0-450) 06/26/17 07:38 Total Protein 7.5 g/dL (6.3-8.2) 06/26/17 07:38 Albumin 4.2 g/dL (3.9-5) 06/26/17 07:38 Albumin/Globulin Ratio 1.3 % 06/26/17 07:38 Lipase 72 units/L (13-60) H 06/27/17 05:29
--- NOTE | 2017-06-28 08:49 | Discharge Summary ---
Providers - Providers Date of Admission: 06/26/17 07:57 Date of discharge: 06/28/17 Attending physician: TRUNG GARRISON MD 06/26/17 Consult to Cardiac Rehabilitation [CONS] Routine Reason For Exam: Phase I Primary care physician: SPINNING DOFFER Hospitalization Condition: Stable Hospital course: This is a 46-year-old male presents to the emergency department with significant past medical history of hypertension complaining of midsternal nonradiating chest pain that began on . Patient was diagnosed with Chest pain,Elevate D-dimer, Hypertension and Ongoing tobacco. Patient presented with atypical chest pain, ACS was ruled out, Stress test, normal MPI, cardiac enzymes negative, ECGs shows normal sinus rythm, CXR was wnl, Doppler VL no evidence of DVT/SVT and CTA with no risk for pulmonary embolism. Patient chest pain probably from musculoskeletal or . She was treated with IV fluid hydration, antacid, antihypertensive medication. He is being discharged on oral antacid along with PO pain medication. Patient is clinically improved and stable for discharge. Also Ongoing tobacco use smoking cessation counseling done patient strongly advised to quit. Patient agreed upon course of action. Patient advised to follow-up with her primary care provider. Diagnosed Chest pain Elevate D-dimer Hypertension Ongoing tobacco DVT prophylaxis Lovenox Disposition: DC-30 STILL A PATIENT Time spent for discharge: 33 minutes Core Measure Documentation - Palliative Care Palliative Care/ Comfort Measures: Not Applicable - Core Measures Any of the following diagnoses?: none Exam - Constitutional Vitals: Temp Pulse Resp BP Pulse Ox 97.3 F L 62 20 114/71 94 06/28/17 05:43 06/28/17 05:43 06/28/17 05:43 06/28/17 05:43 06/28/17 05:43 General appearance: Present: no acute distress - EENT Eyes: Present: PERRL ENT: hearing intact - Neck Neck: Present: supple - Respiratory Respiratory effort: normal Respiratory: bilateral: CTA - Cardiovascular Heart rate: 67 Rhythm: regular Heart Sounds: Present: S1 & S2 - Extremities Extremities: no ischemia Peripheral Pulses: within normal limits - Abdominal General gastrointestinal: Present: soft, non-tender Male genitourinary: Present: deferred - Rectal Rectal Exam: deferred - Integumentary Integumentary: Present: clear, warm, dry - Musculoskeletal Musculoskeletal: strength equal bilaterally - Psychiatric Psychiatric: appropriate mood/affect - Neurologic Neurologic: CNII-XII intact - Allied Health Allied health notes reviewed: nursing Plan Activity: no restrictions Weight Bearing Status: Weight Bear as Tolerated Follow up with: [facility] [Provider Group] - 7 Days PRIMARY CARE, [Primary Care Provider] - 3-5 Days Forms: Work/School Release Form Prescriptions: Ibuprofen [Motrin] 600 mg PO Q8H PRN #14 tablet PRN Reason: Pain Pantoprazole [Protonix TAB] 40 mg PO QDAY #30 tablet
[2017-06-28 09:20] VITALS: BP 130/83
[2017-06-28] MEDS: LOVENOX SUB-Q SCH (10:14)
[2017-06-28] MEDS: BABY ASPIRIN PO SCH (10:14)
[2017-06-28] MEDS: PROTONIX PO SCH (10:15)
[2017-06-28] MEDS: NORVASC PO SCH (10:15)
[2017-06-28] MEDS: TENORMIN PO SCH (10:16)
[2017-06-28] MEDS: ZESTRIL PO SCH (10:16)
--- NOTE | 2017-06-29 07:30 | XRay Report ---
ABDOMEN, 2 views: History: Abdominal pain. This exam is just presented to me for interpretation. No comparison. There is no evidence of free air beneath the diaphragms. The gas pattern within the abdomen is unremarkable. There is no evidence of bowel dilatation, significant air-fluid levels, or pathologic calcifications. Organ shadows are unremarkable. There is moderate stool throughout the length of the colon. IMPRESSION: Mild constipation.
--- NOTE | 2017-06-29 10:25 | Vascular Lab Report ---
LOWER EXTREMITY VENOUS DUPLEX: REASON FOR EXAM: Elevated d-dimer. COMMENTS ON THE RIGHT: All veins visualized are freely compressible without evidence of internal echogenicity. Flow is spontaneous and phasic throughout. COMMENTS ON THE LEFT: All veins visualized are freely compressible without evidence of internal echogenicity. Flow is spontaneous and phasic throughout. IMPRESSION: No evidence of acute or chronic deep venous thrombosis in either lower extremity.
== END 2017-06-28 11:51 | disposition home or self-care (01) | DRG 313 ==
LOC: ED 18:14 → 4A 06-26 07:57
PROVIDERS: ADMIT Hospitalist; ATTEND Internal Medicine
DX: R07.9 Chest pain, unspecified (principal); I10 Essential (primary) hypertension; F17.210 Nicotine dependence, cigarettes, uncomplicated; I44.0 Atrioventricular block, first degree; Z72.89 Other problems related to lifestyle; Z71.89 Other specified counseling
CPT/HCPCS: 36415; 71010; 71275; 74020; 78452; 80048; 80074; 83690; 83880; 84484; 85025; 85379; 85610; 85730; 93005; 93010; 93017; 93970; A9502; J1650; J2270; J2785; Q9967

== ENCOUNTER 2018-05-27 04:21 | Emergency (ER) | payer SELFPAY ==
--- NOTE | 2018-05-27 07:30 | Emergency Department Report ---
ED Recheck HPI - General Chief Complaint: Recheck/Abnormal Lab/Rx Stated Complaint: REFILL Time Seen by Provider: 05/27/18 07:25 Source: patient Mode of arrival: Ambulatory Limitations: No Limitations - History of Present Illness Initial Comments: 47-year-old male past medical history hypertension presents to the ED for medication refill. Patient takes atenolol amlodipine and lisinopril daily. Has been out of medication for approximately 2 weeks. Patient states his blood pressure typically hovers around 150 systolic and 100 diastolic. States that he recently moved to [facility] and it does not have established primary care. Denies any current chest pain abdominal pain nausea vomiting shortness of breath palpitations blurred vision or headache. Denies any upper or lower extremity paresthesias. Patient is awake alert and oriented 3 not in acute distress. MD Complaint: medication refill request Onset/Timin -: week(s), month(s) Returns Today for: request for prescription - Related Data Previous Rx's Medication Instructions Recorded Last Taken Type Atenolol [Tenormin] 50 mg PO DAILY #30 tablet 05/27/18 Unknown Rx Lisinopril [Zestril TAB] 20 mg PO QDAY #90 tablet 05/27/18 Unknown Rx amLODIPine [Norvasc] 10 mg PO DAILY #90 tablet 05/27/18 Unknown Rx Allergies Allergy/AdvReac Type Severity Reaction Status Date / Time No Known Allergies Allergy Verified 05/27/18 04:49 ED Review of Systems ROS: Stated complaint: REFILL Other details as noted in HPI Constitutional: denies: chills, fever Eyes: denies: eye pain, eye discharge, vision change ENT: denies: ear pain, throat pain Respiratory: denies: cough, shortness of breath, wheezing Cardiovascular: denies: chest pain, palpitations Endocrine: no symptoms reported Gastrointestinal: denies: abdominal pain, nausea, diarrhea Genitourinary: denies: urgency, dysuria Musculoskeletal: denies: back pain, joint swelling, arthralgia Skin: denies: rash, lesions Neurological: denies: headache, weakness, paresthesias Psychiatric: denies: anxiety, depression Hematological/Lymphatic: denies: easy bleeding, easy bruising ED Past Medical Hx - Past Medical History Hx Hypertension: Yes - Surgical History Additional Surgical History: Right arm - Social History Smoking Status: Current Every Day Smoker Substance Use Type: Alcohol - Medications Home Medications: Home Medications Medication Instructions Recorded Confirmed Last Taken Type Atenolol [Tenormin] 50 mg PO DAILY #30 tablet 05/27/18 Unknown Rx Lisinopril [Zestril TAB] 20 mg PO QDAY #90 tablet 05/27/18 Unknown Rx amLODIPine [Norvasc] 10 mg PO DAILY #90 tablet 05/27/18 Unknown Rx ED Physical Exam - General Limitations: No Limitations General appearance: alert, in no apparent distress - Head Head exam: Present: atraumatic, normocephalic - Eye Eye exam: Present: normal appearance - ENT ENT exam: Present: mucous membranes moist - Neck Neck exam: Present: normal inspection - Respiratory Respiratory exam: Present: normal lung sounds bilaterally. Absent: respiratory distress - Cardiovascular Cardiovascular Exam: Present: regular rate, normal rhythm. Absent: systolic murmur, diastolic murmur, rubs, gallop - GI/Abdominal GI/Abdominal exam: Present: soft, normal bowel sounds - Rectal Rectal exam: Present: deferred - Extremities Exam Extremities exam: Present: normal inspection - Back Exam Back exam: Present: normal inspection - Neurological Exam Neurological exam: Present: alert, oriented X3, CN II-XII intact - Psychiatric Psychiatric exam: Present: normal affect, normal mood - Skin Skin exam: Present: warm, dry, intact, normal color. Absent: rash ED Course Vital Signs 05/27/18 04:42 Temperature 98.4 F Pulse Rate 90 Respiratory 18 Rate Blood Pressure 151/105 O2 Sat by Pulse 93 Oximetry ED Recheck MDM - Differential Diagnosis Prescription Refill(s) - Medical Decision Making A/P: Medication refill, asymptomatic hypertension 1- I referred patient to primary care and advised him it is important to follow- up as an outpatient 2- pt is asymptomatic at this time 3-refill on atenolol amlodipine and lisinopril 4-vital signs stable for discharge Critical care attestation.: If time is entered above; I have spent that time in minutes in the direct care of this critically ill patient, excluding procedure time. ED Disposition Clinical Impression: Asymptomatic hypertension, Encounter for medication refill Disposition: DC-01 TO HOME OR SELFCARE Is pt being admited?: No Does the pt Need Aspirin: No Condition: Stable Instructions: Hypertension (ED), Low Sodium Diet (ED) Prescriptions: amLODIPine [Norvasc] 10 mg PO DAILY #90 tablet Atenolol [Tenormin] 50 mg PO DAILY #30 tablet Lisinopril [Zestril TAB] 20 mg PO QDAY #90 tablet Referrals: [facility] [Outside] - 3-5 Days [facility] [Outside] - 3-5 Days HECTOR MAN MD [Staff Physician] - 3-5 Days Forms: Work/School Release Form(ED) Time of Disposition: 07:29
[2018-05-27 07:49] VITALS: BP 158/103
== END 2018-05-27 07:50 | disposition home or self-care (01) ==
LOC: ED 04:21
DX: I10 Essential (primary) hypertension (principal); Z76.0 Encounter for issue of repeat prescription; F17.200 Nicotine dependence, unspecified, uncomplicated
CPT/HCPCS: 99282

== ENCOUNTER 2018-06-08 21:11 | Emergency (ER) | payer OTHER ==
[2018-06-08 21:20] VITALS: BP 161/105
[2018-06-08] MEDS ORDERED: MOTRIN PO ONE (22:43)
--- NOTE | 2018-06-08 22:43 | Emergency Department Report ---
ED Lower Extremity HPI - General Chief Complaint: Extremity Problem,Nontraumatic Stated Complaint: LT FOOT PAIN Time Seen by Provider: 06/08/18 22:24 Source: patient Mode of arrival: Ambulatory Limitations: No Limitations - History of Present Illness Initial Comments: This is a 47-year-old male nontoxic, well nourished in appearance, no acute signs of distress presents to the ED with c/o of acute on chronicleft foot pain 3 weeks. Patient stated stated that he walks a lot at work. 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 Patient also stated has itching and callus formation with scaly skin in between 4th and 5th toes. Patient denies any trauma. Patient denies any numbness, tingling, fever, chills, nausea, vomiting, chest pain, shortness of breath, headache, stiff neck. Patient denies any joint swelling or joint redness. Patient denies decreased range of motion. Patient stated has decreased gait due to pain. Patient denies any allergies. PMH includes HTN. MD Complaint: foot injury -: week(s) (3) Injury: Foot: Left Place: work Severity: mild Severity scale (0 -10): 8 Improves With: immobilization Worsens With: palpation Associated Symptoms: ambulatory. denies: snap/pop sensation, swelling, numbness , tingling, unable to bear weight, able to partially bear weight - Related Data Previous Rx's Medication Instructions Recorded Last Taken Type Atenolol [Tenormin] 50 mg PO DAILY #30 tablet 05/27/18 Unknown Rx Lisinopril [Zestril TAB] 20 mg PO QDAY #90 tablet 05/27/18 Unknown Rx amLODIPine [Norvasc] 10 mg PO DAILY #90 tablet 05/27/18 Unknown Rx Clotrimazole 1% [Lotrimin 1%] 1 applic TP BID #1 tube 06/08/18 Unknown Rx Ibuprofen [Motrin] 600 mg PO Q8H PRN #30 tablet 06/08/18 Unknown Rx Allergies Allergy/AdvReac Type Severity Reaction Status Date / Time No Known Allergies Allergy Verified 06/08/18 21:15 ED Review of Systems ROS: Stated complaint: LT FOOT PAIN Other details as noted in HPI Constitutional: denies: chills, fever Eyes: denies: eye pain, eye discharge, vision change ENT: denies: ear pain, throat pain Respiratory: denies: cough, shortness of breath, wheezing Cardiovascular: denies: chest pain, palpitations Endocrine: no symptoms reported Gastrointestinal: denies: abdominal pain, nausea, diarrhea Genitourinary: denies: urgency, dysuria Musculoskeletal: denies: back pain, joint swelling, arthralgia Skin: denies: rash, lesions Neurological: denies: headache, weakness, paresthesias Psychiatric: denies: anxiety, depression Hematological/Lymphatic: denies: easy bleeding, easy bruising ED Past Medical Hx - Past Medical History Hx Hypertension: Yes - Surgical History Additional Surgical History: Right arm - Social History Smoking Status: Current Every Day Smoker Substance Use Type: Alcohol - Medications Home Medications: Home Medications Medication Instructions Recorded Confirmed Last Taken Type Atenolol [Tenormin] 50 mg PO DAILY #30 tablet 05/27/18 Unknown Rx Lisinopril [Zestril TAB] 20 mg PO QDAY #90 tablet 05/27/18 Unknown Rx amLODIPine [Norvasc] 10 mg PO DAILY #90 tablet 05/27/18 Unknown Rx Clotrimazole 1% [Lotrimin 1%] 1 applic TP BID #1 tube 06/08/18 Unknown Rx Ibuprofen [Motrin] 600 mg PO Q8H PRN #30 tablet 06/08/18 Unknown Rx ED Physical Exam - General Limitations: No Limitations General appearance: alert, in no apparent distress - Head Head exam: Present: atraumatic, normocephalic - Eye Eye exam: Present: normal appearance - ENT ENT exam: Present: mucous membranes moist - Neck Neck exam: Present: normal inspection - Respiratory Respiratory exam: Present: normal lung sounds bilaterally. Absent: respiratory distress - Cardiovascular Cardiovascular Exam: Present: regular rate, normal rhythm. Absent: systolic murmur, diastolic murmur, rubs, gallop - GI/Abdominal GI/Abdominal exam: Present: soft, normal bowel sounds - Rectal Rectal exam: Present: deferred - Extremities Exam Extremities exam: Present: normal inspection, full ROM, tenderness, normal capillary refill. Absent: joint swelling - Expanded Lower Extremity Exam Left Hip exam: Present: normal inspection, full ROM. Absent: tenderness, swelling Upper Leg exam: Present: normal inspection, full ROM. Absent: tenderness, swelling Knee exam: Present: normal inspection, full ROM. Absent: tenderness, swelling Lower Leg exam: Present: normal inspection, full ROM. Absent: tenderness, swelling Ankle exam: Present: normal inspection, full ROM. Absent: tenderness, swelling Foot/Toe exam: Present: full ROM, tenderness. Absent: swelling, abrasion, laceration, ecchymosis, deformity, crepidus, dislocation, erythema, amputation, puncture wound, foreign body, calcaneal tenderness, tenderness at base of 5th metatarsal, nail avulsion, subungual hematoma Neuro vascular tendon exam: Present: no vascular compromise. Absent: pulse deficit, abnormal cap refill, motor deficit, sensory deficit, tendon deficit, extremity cold to touch, pallor, abnormal 2-point discrimination, decreased fine /light touch, foot drop, peroneal nerve deficit, significant pain with passive ROM of distal joint Gait: Positive: observed and normal 1 - Callus with scaly skin and itching - Back Exam Back exam: Present: normal inspection - Neurological Exam Neurological exam: Present: alert, oriented X3 - Psychiatric Psychiatric exam: Present: normal affect, normal mood - Skin Skin exam: Present: warm, dry, intact, normal color. Absent: rash ED Course Vital Signs 06/08/18 21:15 Temperature 98.5 F Pulse Rate 95 H Respiratory 18 Rate Blood Pressure 161/105 O2 Sat by Pulse 95 Oximetry - Reevaluation(s) Reevaluation #1: 06/08/18 22:42 Patient is speaking in full sentences with no signs of distress noted. ED Lower Extremity MDM - Medical Decision Making This is a 47-year-old male that presents with tinea pedis with callus. Patient is stable and was examined by me. I referred patient to an orthopedic doctor for further evaluation for possible MRI. X-ray has been obtained and dictated by the radiologist. Patient is notified of the x-ray report with noted by the patient. Patient does have normal gait with no tenderness and no joint swelling. No ecchymosis. no joint redness or swelling. Not warm to touch. No signs of cellulites present. Patient received a knee immobilize and patient stated has a walker at home. Patient was instructed to RICE therapy. Patient received Motrin for pain. Patient is discharged with Motrin and Clotrimazole. At time of discharge, the patient does not seem toxic or ill in appearance. No acute signs of distress noted. Patient agrees to discharge treatment plan of care. No further questions noted by the patient. Critical care attestation.: If time is entered above; I have spent that time in minutes in the direct care of this critically ill patient, excluding procedure time. ED Disposition Clinical Impression: Callus of foot Tinea pedis Qualifiers: Laterality: left Qualified Code(s): B35.3 - Tinea pedis Disposition: DC- TO HOME OR SELFCARE Is pt being admited?: No Does the pt Need Aspirin: No Condition: Stable Instructions: Tinea Pedis (ED) Additional Instructions: Follow-up with a primary care doctor in 3-5 days or if symptoms worsen and continue return to emergency room as soon as possible. Prescriptions: Clotrimazole 1% [Lotrimin 1%] 1 applic TP BID #1 tube Ibuprofen [Motrin] 600 mg PO Q8H PRN #30 tablet PRN Reason: Pain Referrals: PRIMARY CAREMD [Primary Care Provider] - 3-5 Days DALTON CHANCE MD [Staff Physician] - 3-5 Days [facility] [Outside] - 3-5 Days [facility] [Outside] - 3-5 Days Forms: Work/School Release Form(ED)
--- NOTE | 2018-06-08 23:41 | XRay Report ---
FINAL REPORT EXAM: XR FOOT 3+V LT HISTORY: left foot pain TECHNIQUE: Three views of the left foot PRIORS: None. FINDINGS: The bones are normally aligned and mineralized. The joint spaces are well-preserved. There is no evidence of acute fracture. The soft tissues are unremarkable. IMPRESSION: No evidence of acute fracture or subluxation.
== END 2018-06-08 23:59 | disposition home or self-care (01) ==
LOC: ED 21:11
DX: B35.3 Tinea pedis (principal); L84 Corns and callosities; I10 Essential (primary) hypertension; F17.200 Nicotine dependence, unspecified, uncomplicated
CPT/HCPCS: 99283

== ENCOUNTER 2018-06-13 20:32 | Inpatient (IN) | payer SELFPAY ==
[2018-06-13] MEDS ORDERED: ASPIRIN PO ONE (21:01)
[2018-06-13] MEDS ORDERED: NITROSTAT SL ONE (21:14)
[2018-06-13] MEDS ORDERED: ZOFRAN IV ONE ×2 (21:14)
[2018-06-13] MEDS ORDERED: SUBLIMAZE IV ONE ×2 (21:14)
[2018-06-13] MEDS ORDERED: APRESOLINE IV ONE (21:15)
[2018-06-13 21:28] LABS: Basophils # (Auto) 0.1 K/mm3 (0.0-0.1); Basophils % (Auto) 0.9 % (0.0-1.8); Eosinophils # (Auto) 0.1 K/mm3 (0.0-0.4); Eosinophils % (Auto) 1.6 % (0.0-4.3); Hematocrit 43.4 % (35.5-45.6); Lymphocytes # (Auto) 3.7 K/mm3 (1.2-5.4); Lymphocytes % (Auto) 46.2 % (13.4-35.0); Mean Corpuscular HGB Conc 35 % (32-34); Mean Corpuscular Hemoglobin 28 pg (28-32); Mean Corpuscular Volume 81 fl (84-94); Monocytes # (Auto) 0.6 K/mm3 (0.0-0.8); Monocytes % (Auto) 7.2 % (0.0-7.3); Platelet Count 193 K/mm3 (140-440); Red Cell Distribution Width 15.3 % (13.2-15.2)
[2018-06-13 21:38] LABS: BUN/Creatinine Ratio 9; Blood Urea Nitrogen 10 mg/dL (9-20); Calcium 9.4 mg/dL (8.4-10.2); Hemolysis Index 14
--- NOTE | 2018-06-13 21:40 | Emergency Department Report ---
HPI - General Chief Complaint: Chest Pain Time Seen by Provider: 06/13/18 21:07 - HPI HPI: The patient is a 47-year-old male who presents for evaluation of chest pain. The patient reports midsternal stinging chest pain, at times pressure-like, moderate in severity, constant since onset approximately 1-2 hours prior to arrival. hemoptysis, unilateral leg swelling, oral contraceptive use, recent immobilization, history of DVT or PE, hx of recent cancer. ED Past Medical Hx - Past Medical History Previous Medical History?: Yes Hx Hypertension: Yes Hx GERD: Yes - Surgical History Past Surgical History?: Yes Additional Surgical History: Right arm - Social History Smoking Status: Current Every Day Smoker Substance Use Type: Alcohol - Medications Home Medications: Home Medications Medication Instructions Recorded Confirmed Last Taken Type Atenolol [Tenormin] 50 mg PO DAILY #30 tablet 05/27/18 Unknown Rx Lisinopril [Zestril TAB] 20 mg PO QDAY #90 tablet 05/27/18 Unknown Rx amLODIPine [Norvasc] 10 mg PO DAILY #90 tablet 05/27/18 Unknown Rx Clotrimazole 1% [Lotrimin 1%] 1 applic TP BID #1 tube 06/08/18 Unknown Rx Ibuprofen [Motrin] 600 mg PO Q8H PRN #30 tablet 06/08/18 Unknown Rx ED Review of Systems ROS: Stated complaint: CP Other details as noted in HPI Constitutional: denies: fever ENT: denies: throat or neck pain Respiratory: denies: cough, shortness of breath Cardiovascular: reports: chest pain Endocrine: denies unexplained weight loss or gain Gastrointestinal: denies: abdominal pain, nausea Genitourinary: denies: dysuria Musculoskeletal: denies: leg swelling Skin: denies: rash Neurological: denies: headache Hematological/Lymphatic: denies: easy bleeding or easy bruising Psych: denies sadness or hopelessness Physical Exam - Physical Exam Vital Signs: Vital Signs 06/13/18 06/13/18 20:57 21:07 Temperature 98.0 F Pulse Rate 66 Respiratory 20 20 Rate Blood Pressure 175/120 O2 Sat by Pulse 100 97 Oximetry Physical Exam: General: well-nourished, well-developed, no acute distress Head: Normocephalic, atraumatic Eyes: normal sclera ENT: Mucous membranes are pink and moist Neck: trachea midline, neck supple, No neck stiffness, no cervical adenopathy Respiratory: Breath sounds equal bilaterally, no wheezing, rales, or rhonchi Cardio: S1 and S2 present, no murmurs, rubs, gallops, capillary refill is brisk Abdomen: Normoactive bowel sounds, soft abdomen, no rigidity, no guarding or rebound tenderness Chest WALL/Back: No tenderness to palpation of the chest wall, no CVA tenderness with percussion Musc: No pitting edema Skin: No rash Neuro: no facial drooping, normal speech Psych: Normal affect ED Course Vital Signs 06/13/18 06/13/18 20:57 21:07 Temperature 98.0 F Pulse Rate 66 Respiratory 20 20 Rate Blood Pressure 175/120 O2 Sat by Pulse 100 97 Oximetry ED Medical Decision Making - Lab Data Result diagrams: 06/13/18 21:07 06/13/18 21:07 - Medical Decision Making The patient was seen and examined by myself. The patient is placed on a radiology receptionist and continuous pulse ox. On initial evaluation, the patient was found to be in no distress. EKG was negative for findings suggestive of acute cardiac infarct. Labs and imaging are obtained. The patient is given IV hydralazine for her elevated blood pressure, and IV analgesia for his pain. Chest x-ray is negative for pneumothorax, focal consolidation, pulmonary vascular congestion, pleural effusion, or other obvious acute cardiopulmonary disease process. Lab results were non-concerning including levels of troponin, WBC, hemoglobin, hematocrit, electrolytes, renal function. The patient is given multiple doses of antihypertensive and pain medicine, he remains hypertensive, tachycardic, and with mild pain. The on-call hospitalist service was contacted. They agreed to admit the patient for further treatment and close monitoring. The ED admit order was placed. The patient was admitted in guarded condition. Critical care attestation.: If time is entered above; I have spent that time in minutes in the direct care of this critically ill patient, excluding procedure time. ED Disposition Clinical Impression: Acute chest pain, Abdominal pain, acute, epigastric, Hypertensive urgency Disposition: OP ADMIT IP TO THIS HOSP Is pt being admited?: Yes Does the pt Need Aspirin: Yes Condition: Fair Instructions: Chest Pain (ED), Chronic Hypertension (ED) Referrals: PRIMARY CARE, [Primary Care Provider] - 3-5 Days Time of Disposition: :46
[2018-06-13] MEDS ORDERED: ALUM-MAG HYDROX-SIMETH 200-200-20MG/5ML PO ONE (22:19)
[2018-06-13] MEDS ORDERED: LIDOCAINE VISCOUS 2% PO ONE (22:19)
[2018-06-14 00:01] LABS: Alanine Aminotransferase 15 units/L (7-56); Albumin 4.2 g/dL (3.9-5); Lipase 38 units/L (13-60)
--- NOTE | 2018-06-14 00:07 | XRay Report ---
FINAL REPORT EXAM: XR CHEST 1V AP HISTORY: chest pain TECHNIQUE: Single AP portable radiograph of the chest was obtained. PRIORS: None. FINDINGS: There are no focal consolidations to suggest pneumonia. No large pleural effusion. No pneumothorax. Top normal cardiac silhouette given portable technique. No acute osseous abnormality identified. IMPRESSION: No focal consolidation, pleural effusion or pneumothorax. Cardiac silhouette measures at the upper limits of normal, possibly exacerbated by portable technique. No overt findings of congestive heart failure.
[2018-06-14 00:27] LABS: Bilirubin,Direct < 0.2 mg/dL (0-0.2)
[2018-06-14] MEDS ORDERED: APRESOLINE IV ONE (03:28)
[2018-06-14] MEDS ORDERED: APRESOLINE IV PRN (03:47)
[2018-06-14] MEDS ORDERED: ZOFRAN IV PRN (03:48)
[2018-06-14] MEDS ORDERED: TYLENOL PO PRN (03:48)
[2018-06-14] MEDS ORDERED: SODIUM CHLORIDE FLUSH SYRINGE 10 ML IV PRN (03:48)
[2018-06-14] MEDS ORDERED: MORPHINE IV PRN (03:48)
--- NOTE | 2018-06-14 03:56 | History and Physical Report ---
History of Present Illness Date of examination: 06/14/18 History of present illness: 47-year-old woman with a no medical history comes to the emergency room complaining of chest pain located in the epigastric area that started today. he described pain as a sharp pain intermittent every 5 minutes, intensity 5/10, no radiation, he cannot identify exacerbating or relieving factors. No shortness of breath, nausea vomiting, diaphoresis. Patient has not taken his antihypertensive in 3 days Review of systems Constitutional: no weight loss, chills, fever Ears, eyes, nose, mouth and throat: no nasal congestion, no nasal discharge, no sinus pressure, no vision change, no red eye. Neck: No neck pain or rigidity. Cardiovascular: no palpitations Respiratory: no cough, shortness of breath Gastrointestinal: no abdominal pain hematochezia Genitourinary : no frequency , no hematuria Musculoskeletal: no joint swelling or muscle ache Integumentary: no rash, no pruritis Neurological: no parathesias, no numbness, no focal weakness Endocrine: no cold or heat intolerance, no polyuria or polydipsia Hematologic/Lymphatic: no easy bruising, no easy bleeding, no gland swelling Allergic/Immunologic: no urticaria, no angioedema. PAST MEDICAL HISTORY: Hypertension PAST SURGICAL HISTORY: Roght arm SOCIAL HISTORY: No alcohol, no drugs, +tobacco FAMILY HISTORY:Hypertension Medications and Allergies Allergies Allergy/AdvReac Type Severity Reaction Status Date / Time No Known Allergies Allergy Verified 06/08/18 21:15 Home Medications Medication Instructions Recorded Confirmed Last Taken Type Atenolol [Tenormin] 50 mg PO DAILY #30 tablet 05/27/18 Unknown Rx Lisinopril [Zestril TAB] 20 mg PO QDAY #90 tablet 05/27/18 Unknown Rx amLODIPine [Norvasc] 10 mg PO DAILY #90 tablet 05/27/18 Unknown Rx Clotrimazole 1% [Lotrimin 1%] 1 applic TP BID #1 tube 06/08/18 Unknown Rx Ibuprofen [Motrin] 600 mg PO Q8H PRN #30 tablet 06/08/18 Unknown Rx Active Meds: Active Medications Acetaminophen (Tylenol) 650 mg PO Q4H PRN PRN Reason: Pain MILD(1-3)/Fever >100.5/BARROS Enoxaparin Sodium (Lovenox) 30 mg SUB-Q QDAY EVERARDO Hydralazine HCl (Apresoline) 5 mg IV Q6HR PRN PRN Reason: Hypertension Morphine Sulfate (Morphine) 2 mg IV Q4H PRN PRN Reason: Pain, Moderate (4-6) Ondansetron HCl (Zofran) 4 mg IV Q8H PRN PRN Reason: Nausea And Vomiting Sodium Chloride (Sodium Chloride Flush Syringe 10 Ml) 10 ml IV BID EVERARDO Sodium Chloride (Sodium Chloride Flush Syringe 10 Ml) 10 ml IV PRN PRN PRN Reason: LINE FLUSH Exam - Physical Exam Narrative exam: Gen. appearance: Patient lying in bed, no apparent distress HEENT: Normocephalic, atraumatic, pupils equally round and reactive to light, extraocular movement intact, and no sclericterus,. No JVD or thyromegaly or nodule,neck supple, no carotid bruit ,mucous membranes moist, no exudate or erythema Heart: S1, S2, regular rate and rhythm Lungs: Clear bilaterally, breathing comfortable Abdomen: Positive bowel sounds, non-tender, nondistended, no organomegaly Extremity:no edema cyanosis, clubbing Skin: no rash, dry, warm Neuro: Oriented 3, cranial nerves II-12 intact, speech is fluent, motor and sensory intact - Constitutional Vitals: Temp Pulse Resp BP Pulse Ox 98.0 F 91 H 13 151/96 97 06/13/18 20:57 06/14/18 02:46 06/14/18 02:46 06/14/18 02:46 06/14/18 02:46 Results - Labs CBC & Chem 7: 06/13/18 21:07 06/13/18 21:07 Labs: Abnormal lab results 06/13/18 Range/Units 21:07 RBC 5.40 H (3.65-5.03) M/mm3 MCV 81 L (84-94) fl MCHC 35 H (32-34) % RDW 15.3 H (13.2-15.2) % Lymph % (Auto) 46.2 H (13.4-35.0) % - Imaging and Cardiology EKG: report reviewed Chest x-ray: report reviewed Assessment and Plan Assessment Hypertensive urgency Chest pain plan Admit to medicine Start IV hydralazine Check cardiac enzymes, stress test IV morphine, DVT prophylaxis
[2018-06-14] MEDS ORDERED: BABY ASPIRIN PO ONE (04:02)
--- NOTE | 2018-06-14 09:40 | Progress Note ---
Assessment and Plan Assessment Hypertensive urgency Chest pain plan Continue with oxygen, nitroglycerin and aspirin and morphine. Serial cardiac enzymes were normal Follow up with stress test resolved Continue with oral antihypertensive medications that include lisinopril, amlodipine, atenolol. Start IV hydralazine prn fro SBP > 170 DVT prophylaxis Subjective Date of service: 06/14/18 Principal diagnosis: chest pain, hypertensive urgency Interval history: Having occasional chest pain. Denies any shortness of breath orthopnea or paroxysmal dyspnea. Objective - Exam Narrative Exam: Constitutional: Well-nourished well-developed. In no distress Head: Normocephalic atraumatic Eyes: Pupils are equal round and reactive to light Nose: No enlarged turbinates, no septal deviation. Mouth: Moist mucous membranes. Neck: Supple no thyromegaly. No bruit. No JVD Heart: Regular rate and rhythm, S1-S2 abnormal. No rubs murmurs or gallop Lungs: Clear to auscultation bilaterally no rales or rhonchi Abdomen: Soft, nontender. Bowel sound are present. Extremities: No edema no cyanosis and no clubbing. Neuro: Alert oriented Oriented x3. No focal sensory or motor deficit. Skin: No rashes no hyperemic spots Psychiatry: Euthymic. Calm. - Constitutional Vitals: Vital Signs - 12hr 06/13/18 06/13/18 06/13/18 21:46 22:00 22:16 Pulse Rate 105 H 89 87 Respiratory 17 14 12 Rate Blood Pressure 128/90 137/84 137/84 O2 Sat by Pulse 97 97 99 Oximetry 06/13/18 06/13/18 06/13/18 22:30 22:46 23:00 Pulse Rate 82 88 85 Respiratory 17 17 18 Rate Blood Pressure 143/92 143/92 136/84 O2 Sat by Pulse 99 99 98 Oximetry 06/13/18 06/13/18 06/13/18 23:16 23:30 23:46 Pulse Rate 84 87 88 Respiratory 15 15 15 Rate Blood Pressure 136/84 151/85 151/85 O2 Sat by Pulse 97 98 97 Oximetry 06/14/18 06/14/18 06/14/18 00:00 00:16 00:30 Pulse Rate 93 H 90 91 H Respiratory 16 13 14 Rate Blood Pressure 151/85 151/85 149/89 O2 Sat by Pulse 96 96 97 Oximetry 06/14/18 06/14/18 06/14/18 00:46 01:00 01:16 Pulse Rate 90 96 H 101 H Respiratory 15 14 17 Rate Blood Pressure 133/91 122/75 149/89 O2 Sat by Pulse 94 94 93 Oximetry 06/14/18 06/14/18 06/14/18 01:30 01:46 02:00 Pulse Rate 94 H 94 H 90 Respiratory 13 14 14 Rate Blood Pressure 142/86 142/86 144/84 O2 Sat by Pulse 96 97 97 Oximetry 06/14/18 06/14/18 06/14/18 02:16 02:30 02:46 Pulse Rate 101 H 101 H 91 H Respiratory 13 12 13 Rate Blood Pressure 144/84 151/96 151/96 O2 Sat by Pulse 98 97 97 Oximetry 06/14/18 06/14/18 06/14/18 04:55 05:00 05:16 Pulse Rate Respiratory 15 10 L 14 Rate Blood Pressure 151/95 O2 Sat by Pulse 96 98 97 Oximetry 06/14/18 06/14/18 06/14/18 05:30 05:46 06:00 Pulse Rate 98 H Respiratory 13 11 L 17 Rate Blood Pressure 153/91 153/91 146/95 O2 Sat by Pulse 97 97 97 Oximetry 06/14/18 06/14/18 06/14/18 06:16 06:30 06:46 Pulse Rate Respiratory 13 12 12 Rate Blood Pressure 146/95 155/98 155/98 O2 Sat by Pulse 97 97 97 Oximetry 06/14/18 06/14/18 06/14/18 07:00 07:16 07:30 Pulse Rate Respiratory 11 L 12 11 L Rate Blood Pressure 140/87 140/87 156/106 O2 Sat by Pulse 97 98 98 Oximetry 06/14/18 06/14/18 06/14/18 07:46 08:00 08:16 Pulse Rate Respiratory 13 11 L 14 Rate Blood Pressure 156/106 154/95 154/95 O2 Sat by Pulse 98 97 98 Oximetry - Labs CBC & Chem 7: 06/13/18 21:07 06/13/18 21:07 Labs: Abnormal lab results 06/13/18 Range/Units 21:07 RBC 5.40 H (3.65-5.03) M/mm3 MCV 81 L (84-94) fl MCHC 35 H (32-34) % RDW 15.3 H (13.2-15.2) % Lymph % (Auto) 46.2 H (13.4-35.0) %
[2018-06-14] MEDS ORDERED: SODIUM CHLORIDE FLUSH SYRINGE 10 ML IV SCH (10:00)
[2018-06-14] MEDS ORDERED: LOVENOX SUB-Q SCH (10:00)
[2018-06-14] MEDS ORDERED: NORVASC PO SCH (10:00)
[2018-06-14] MEDS ORDERED: ZESTRIL PO SCH (10:00)
[2018-06-14] MEDS ORDERED: LEXISCAN IV ONE ×2 (10:36→10:38)
--- NOTE | 2018-06-14 12:59 | Treadmill Report ---
NUCLEAR PERFUSION SCAN REFERRING PHYSICIAN: Jayy Graham MD PROTOCOL: The patient was brought to the stress lab in a post-absorptive state, given 10 mCi of technetium 99m at rest. The patient underwent rest imaging. The patient underwent Lexiscan stress test per standard protocol. At peak stress, the patient was given 26 mCi of technetium 99m. Shortly thereafter, the patient underwent stress imaging. Raw imaging reveals mild GI artifact, no significant motion artifact. SPECT imaging examined carefully in horizontal long axis, vertical long axis, short axis views. There is normal homogenous uptake of radioisotope in all reported segments. No evidence of a significant fixed or reversible perfusion defects suggestive of prior infarction or ischemia. Gated wall motion reveals mild global left ventricular hypokinesis with a calculated ejection fraction of 45%. No TID. CONCLUSIONS: 1. Normal myocardial perfusion scan without evidence of active ischemia or prior infarction. 2. Mild global left ventricular hypokinesis with a calculated ejection fraction of 45%. Stress EKG portion is reported separately. JOB# [id number] [id number]/[email or web address]
[2018-06-14 15:50] VITALS: BP 134/99
--- NOTE | 2018-06-14 17:07 | Discharge Summary ---
Providers - Providers Date of Admission: 06/14/18 03:48 Date of discharge: 06/14/18 Attending physician: PATRICIA MINAYA Primary care physician: MANAGEMENT INFORMATION SYSTEMS DIRECTOR Hospitalization Reason for admission: Chest pain, hypertensive emergency Condition: Fair Pertinent studies: CXR unremarkable, EKG showed left ventricular hypertrophy and T-wave inversion, stress test which was normal Procedures: Stress test that was normal Hospital course: 47-year-old woman with a no medical history comes to the emergency room complaining of chest pain located in the epigastric area that started today. he described pain as a sharp pain intermittent every 5 minutes, intensity 5/10, no radiation, he cannot identify exacerbating or relieving factors. No shortness of breath, nausea vomiting, diaphoresis. Patient has not taken his antihypertensive in 3 days. cardiac enzymes were normal Stress test was done and normal. chest resolved. Pt is begin discharged to f/u with PCP in 3-5 days. Alcohol and tobacco cessation consoling was done. Advised compliance on medication and follow with PCP Disposition: DC- TO HOME OR SELFCARE Core Measure Documentation - Palliative Care Palliative Care/ Comfort Measures: Not Applicable Exam - Constitutional Vitals: Temp Pulse Resp BP Pulse Ox 98.0 F 85 13 134/99 98 06/13/18 20:57 06/14/18 13:30 06/14/18 15:30 06/14/18 15:30 06/14/18 08:16 Plan Activity: advance as tolerated Diet: low salt Special Instructions: record daily BP diary Follow up with: PRIMARY CARE, [Primary Care Provider] - 3-5 Days Prescriptions: amLODIPine [Norvasc] 10 mg PO DAILY #90 tablet Atenolol [Tenormin] 50 mg PO DAILY #30 tablet Clotrimazole 1% [Lotrimin 1%] 1 applic TP BID #1 tube Lisinopril [Zestril TAB] 20 mg PO QDAY #90 tablet
== END 2018-06-14 17:45 | disposition home or self-care (01) | DRG 313 ==
LOC: ED 20:32 → 4A 06-14 03:48
PROVIDERS: ADMIT Internal Medicine; ATTEND Family Medicine
DX: R07.9 Chest pain, unspecified (principal); I16.0 Hypertensive urgency; F17.200 Nicotine dependence, unspecified, uncomplicated; I10 Essential (primary) hypertension; K21.9 Gastro-esophageal reflux disease without esophagitis; Z72.89 Other problems related to lifestyle; Z71.6 Tobacco abuse counseling; Z71.41 Alcohol abuse counseling and surveillance of alcoholic; Z82.49 Family history of ischemic heart disease and other diseases of the circulatory system; Z79.899 Other long term (current) drug therapy; Z86.718 Personal history of other venous thrombosis and embolism; Z86.711 Personal history of pulmonary embolism
CPT/HCPCS: 36415; 71045; 78452; 80048; 80074; 83690; 84484; 85025; 93005; 93010; 93017; A9502; J0360; J1650; J2405; J2785; J3010

== ENCOUNTER 2019-11-15 16:30 | Emergency (ER) | payer SELFPAY ==
[2019-11-15 17:05] LABS: Basophils % (Auto) 0.6 % (0.0-1.8); Eosinophils % (Auto) 0.4 % (0.0-4.3); Hematocrit 41.3 % (35.5-45.6); Hemoglobin 13.9 gm/dl (11.8-15.2); Lymphocytes # (Auto) 2.8 K/mm3 (1.2-5.4); Lymphocytes % (Auto) 47.2 % (13.4-35.0); Mean Corpuscular HGB Conc 34 % (32-34); Mean Corpuscular Volume 81 fl (84-94); Monocytes # (Auto) 0.4 K/mm3 (0.0-0.8); Monocytes % (Auto) 6.5 % (0.0-7.3); Platelet Count 251 K/mm3 (140-440); Red Blood Count 5.11 M/mm3 (3.65-5.03); Red Cell Distribution Width 15.6 % (13.2-15.2)
[2019-11-15 18:02] LABS: Alanine Aminotransferase 12 units/L (7-56); Albumin 4.2 g/dL (3.9-5); BUN/Creatinine Ratio 7; Blood Urea Nitrogen 8 mg/dL (9-20); Calcium 9.5 mg/dL (8.4-10.2); Hemolysis Index 28
[2019-11-15] MEDS ORDERED: SODIUM CHLORIDE 0.9% 1000 ML 1,000 ML IV ONE (21:17)
[2019-11-15] MEDS ORDERED: ONDANSETRON 4 MG/2 ML INJ IV ONE (21:17)
[2019-11-15] MEDS ORDERED: MORPHINE 4 MG/1 ML INJ IV ONE (21:17)
[2019-11-15] MEDS ORDERED: amLODIPine 5 MG TAB PO ONE (21:19)
--- NOTE | 2019-11-15 22:21 | Emergency Department Report ---
ED Abdominal Pain HPI - General Chief Complaint: Abdominal Pain Stated Complaint: ABD PAIN/UPPER STOMACH PAIN Time Seen by Provider: 11/15/19 21:03 Source: patient Mode of arrival: Ambulatory Limitations: No Limitations - History of Present Illness Initial Comments: Patient is a 49-year-old male with complaints of upper abdominal pain that began 2 days ago. He has associated nausea and vomiting. He denies any diarrhea, fever, hematemesis, hematochezia, any other symptoms. He states he had a normal bowel movement yesterday. He states he has a past medical history of hypertension and last took his medication yesterday. he did not take his HTN m edication today. He denies any allergies medications. He states that he is a smoker, occasional drinker, denies drug use. Severity scale (0 -10): 9 - Related Data Previous Rx's Medication Instructions Recorded Last Taken Type amLODIPine [Norvasc] 10 mg PO DAILY #30 tab 08/21/19 Unknown Rx atenoloL [Tenormin] 50 mg PO DAILY #30 tab 08/21/19 Unknown Rx lisinopriL [Zestril TAB] 20 mg PO QDAY #30 tablet 08/21/19 Unknown Rx predniSONE [Deltasone] 20 mg PO DAILY #5 tablet 08/21/19 Unknown Rx Dicyclomine [Bentyl] 20 mg PO TID PRN #14 tablet 11/15/19 Unknown Rx Famotidine [Pepcid] 40 mg PO QHS #30 tablet 11/15/19 Unknown Rx Ondansetron [Zofran Odt] 4 mg PO Q8HR PRN #10 tab.rapdis 11/15/19 Unknown Rx Sucralfate [Carafate] 1 gm PO ACHS 7 Days #21 tablet 11/15/19 Unknown Rx Allergies Allergy/AdvReac Type Severity Reaction Status Date / Time No Known Allergies Allergy Verified 08/21/19 15:36 ED Review of Systems ROS: Stated complaint: ABD PAIN/UPPER STOMACH PAIN Other details as noted in HPI Comment: All other systems reviewed and negative ED Past Medical Hx - Past Medical History Hx Hypertension: Yes Hx GERD: Yes - Surgical History Additional Surgical History: Right arm sx(hardware placed), 2016 - Social History Smoking Status: Current Every Day Smoker - Medications Home Medications: Home Medications Medication Instructions Recorded Confirmed Last Taken Type amLODIPine [Norvasc] 10 mg PO DAILY #30 tab 08/21/19 Unknown Rx atenoloL [Tenormin] 50 mg PO DAILY #30 tab 08/21/19 Unknown Rx lisinopriL [Zestril TAB] 20 mg PO QDAY #30 tablet 08/21/19 Unknown Rx predniSONE [Deltasone] 20 mg PO DAILY #5 tablet 08/21/19 Unknown Rx Dicyclomine [Bentyl] 20 mg PO TID PRN #14 tablet 11/15/19 Unknown Rx Famotidine [Pepcid] 40 mg PO QHS #30 tablet 11/15/19 Unknown Rx Ondansetron [Zofran Odt] 4 mg PO Q8HR PRN #10 tab.rapdis 11/15/19 Unknown Rx Sucralfate [Carafate] 1 gm PO ACHS 7 Days #21 tablet 11/15/19 Unknown Rx ED Physical Exam - General Limitations: No Limitations General appearance: alert, in no apparent distress - Head Head exam: Present: atraumatic, normocephalic - Eye Eye exam: Present: normal appearance - ENT ENT exam: Present: mucous membranes moist - Respiratory Respiratory exam: Present: normal lung sounds bilaterally. Absent: respiratory distress, wheezes, rales, rhonchi, stridor, chest wall tenderness, accessory muscle use, decreased breath sounds, prolonged expiratory - Cardiovascular Cardiovascular Exam: Present: regular rate, normal rhythm, normal heart sounds. Absent: systolic murmur, diastolic murmur, rubs, gallop - GI/Abdominal GI/Abdominal exam: Present: soft, tenderness (epigastric, RUQ), normal bowel sounds. Absent: distended, guarding, rebound, rigid - Neurological Exam Neurological exam: Present: alert, oriented X3 - Psychiatric Psychiatric exam: Present: normal affect, normal mood - Skin Skin exam: Present: warm, dry, intact ED Course Vital Signs 11/15/19 11/15/19 11/16/19 16:43 21:46 00:05 Temperature 97.9 F Pulse Rate 76 74 78 Respiratory 16 17 Rate Blood Pressure 151/119 144/106 Blood Pressure 147/99 [Right] O2 Sat by Pulse 98 99 Oximetry ED Medical Decision Making - Lab Data Result diagrams: 11/15/19 16:51 11/15/19 16:51 Lab Results 11/15/19 11/15/19 11/15/19 Range/Units 16:51 16:51 16:51 WBC 6.0 (4.5-11.0) K/mm3 RBC 5.11 H (3.65-5.03) M/mm3 Hgb 13.9 (11.8-15.2) gm/dl Hct 41.3 (35.5-45.6) % MCV 81 L (84-94) fl MCH 27 L (28-32) pg MCHC 34 (32-34) % RDW 15.6 H (13.2-15.2) % Plt Count 251 (140-440) K/mm3 Lymph % (Auto) 47.2 H (13.4-35.0) % [place] % (Auto) 6.5 (0.0-7.3) % Eos % (Auto) 0.4 (0.0-4.3) % Baso % (Auto) 0.6 (0.0-1.8) % Lymph # 2.8 (1.2-5.4) K/mm3 [place] # 0.4 (0.0-0.8) K/mm3 Eos # 0.0 (0.0-0.4) K/mm3 Baso # 0.0 (0.0-0.1) K/mm3 Seg Neutrophils % 45.3 (40.0-70.0) % Seg Neutrophils # 2.7 (1.8-7.7) K/mm3 Sodium 140 (137-145) mmol/L Potassium 4.3 (3.6-5.0) mmol/L Chloride 100.8 (98-107) mmol/L Carbon Dioxide 24 (22-30) mmol/L Anion Gap 20 mmol/L BUN 8 L (9-20) mg/dL Creatinine 1.1 (0.8-1.5) mg/dL Estimated GFR > 60 ml/min BUN/Creatinine Ratio 7 % Glucose 97 (75-100) mg/dL Calcium 9.5 (8.4-10.2) mg/dL Total Bilirubin 0.30 (0.1-1.2) mg/dL AST 16 (5-40) units/L ALT 12 (7-56) units/L Alkaline Phosphatase 54 (35-129) units/L Total Protein 7.0 (6.3-8.2) g/dL Albumin 4.2 (3.9-5) g/dL Albumin/Globulin Ratio 1.5 % Lipase 29 (13-60) units/L - Radiology Data Radiology results: report reviewed CT of the abdomen and pelvis with contrast INDICATION: Right upper quadrant pain COMPARISON: None FINDINGS: Lung bases are clear. Small hepatic cyst is seen with the liver otherwise unremarkable. The spleen, pancreas, adrenal glands and kidneys are all negative. No definite gallbladder or biliary tree abnormality. No fluid or adenopathy in the upper abdomen. Hepatic flexure is unremarkable. CT of the pelvis shows slight sigmoid diverticulosis without diverticulitis. Appendix is not seen. No pelvic fluid or adenopathy. Prostate is not enlarged. No hernia or bowel obstruction. No significant skeletal lesion. IMPRESSION: Negative study. The appendix is not seen. No right upper quadrant abnormality. Automated exposure control was utilized to diminish radiation dose. Signer Name: Casa Mitchell MD Signed: 11/15/2019 11:13 PM Workstation Name: [id number] Transcribed By: Dictated By: Casa Mitchell MD Electronically Authenticated By: Casa Mitchell MD Signed Date/Time: 11/15/192312 DD/ 04 TD/TT: - Medical Decision Making Patient is a 49-year-old male with complaints of upper abdominal pain that began 2 days ago. He has associated nausea and vomiting. He denies any diarrhea, fever, hematemesis, hematochezia, any other symptoms. He states he had a normal bowel movement yesterday. He states he has a past medical history of hypertension and last took his medication yesterday. he did not take his HTN medication today. He denies any allergies medications. He states that he is a smoker, occasional drinker, denies drug use. initial vitals with elevated BP which improved upon amlodipine administration. labs are stable. CT abd pelvis Negative study. The appendix is not seen. No right upper quadrant abnormality. Patient given 1 L of fluids, Zofran, morphine and symptoms improved. Patient was able tolerate by mouth intake. pt given prescriptions for Bentyl, Zofran, Pepcid, Carafate. advised pt please take medication as prescribed. Increase your water intake over the next several days. Please follow-up with a primary care doctor and a GI doctor in the next 2-3 days. Return to the emergency room for any new or worsening symptoms. - Differential Diagnosis pancreatitis, PUD, cholecystitis, cholelithiasis, GERD, obstruction Critical care attestation.: If time is entered above; I have spent that time in minutes in the direct care of this critically ill patient, excluding procedure time. ED Disposition Clinical Impression: Epigastric abdominal pain Nausea and vomiting Qualifiers: Vomiting type: unspecified Vomiting Intractability: non-intractable Qualified Code(s): R11.2 - Nausea with vomiting, unspecified Disposition: DC-01 TO HOME OR SELFCARE Is pt being admited?: No Does the pt Need Aspirin: No Condition: Stable Instructions: Acute Nausea and Vomiting (ED), Abdominal Pain (ED) Additional Instructions: please take medication as prescribed. Increase your water intake over the next several days. Please follow-up with a primary care doctor and a GI doctor in the next 2-3 days. Return to the emergency room for any new or worsening symptoms. Prescriptions: Famotidine [Pepcid] 40 mg PO QHS #30 tablet Dicyclomine [Bentyl] 20 mg PO TID PRN #14 tablet PRN Reason: abdominal cramping Sucralfate [Carafate] 1 gm PO ACHS 7 Days #21 tablet Ondansetron [Zofran Odt] 4 mg PO Q8HR PRN #10 tab.rapdis PRN Reason: Nausea And Vomiting Referrals: NIMA NAVARRO MD [Staff Physician] - 2-3 Days [facility] [Provider Group] - 2-3 Days Forms: Accompanied Note, Work/School Release Form(ED) Time of Disposition: 23:51 Print Language: MONGOLIAN
--- NOTE | 2019-11-15 23:17 | Cat Scan Report ---
CT of the abdomen and pelvis with contrast INDICATION: Right upper quadrant pain COMPARISON: None FINDINGS: Lung bases are clear. Small hepatic cyst is seen with the liver otherwise unremarkable. The spleen, pancreas, adrenal glands and kidneys are all negative. No definite gallbladder or biliary tr ee abnormality. No fluid or adenopathy in the upper abdomen. Hepatic flexure is unremarkable. CT of the pelvis shows slight sigmoid diverticulosis without diverticulitis. Appendix is not seen. No pelvic fluid or adenopathy. Prostate is not enlarged. No hernia or bowel obstruction. No significant skeletal lesion. IMPRESSION: Negative study. The appendix is not seen. No right upper quadrant abnormality. Automated exposure control was utilized to diminish radiation dose. Signer Name: Casa Mitchell MD Signed: 11/15/2019 11:13 PM Workstation Name: [id number]
[2019-11-16 06:34] VITALS: BP 147/99
== END 2019-11-16 00:05 | disposition home or self-care (01) ==
LOC: ED 16:30
DX: R10.13 Epigastric pain (principal); R11.2 Nausea with vomiting, unspecified; I10 Essential (primary) hypertension; K21.9 Gastro-esophageal reflux disease without esophagitis; F17.200 Nicotine dependence, unspecified, uncomplicated; Z98.890 Other specified postprocedural states; Z79.899 Other long term (current) drug therapy
CPT/HCPCS: 36415; 74177; 80053; 83690; 85025; 96361; 96374; 96375; 99284; J2270; J2405; J7030; Q9967

== ENCOUNTER 2020-01-25 18:23 | Emergency (ER) | payer SELFPAY ==
--- NOTE | 2020-01-25 18:49 | Emergency Department Report ---
Chief Complaint: Medical Clearance Stated Complaint: DETOX - HPI History of Present Illness: Mr. Santos has hx of cocaine use and HTN. Desires inpatient detnox. No current physical concerns. NO SI HI. Referred to outpatient free programs for substance abuse. - Exam Vital Signs: Vital Signs 01/25/20 18:42 Temperature 98.8 F Pulse Rate 96 H Respiratory 20 Rate Blood Pressure 173/113 O2 Sat by Pulse 99 Oximetry MSE screening note: Focused history and physical exam performed. Due to findings the following was ordered: ED Disposition for MSE Clinical Impression: Encounter for medical screening examination Disposition: Z- MED SCREENING EXAM-LEFT Is pt being admited?: No Does the pt Need Aspirin: No Condition: Stable
[2020-01-25 19:37] VITALS: BP 156/78
== END 2020-01-25 19:47 | disposition left against medical advice (07) ==
LOC: ED 18:23
DX: F12.129 Cannabis abuse with intoxication, unspecified (principal); I10 Essential (primary) hypertension
CPT/HCPCS: 99283